=== PATIENT | female | born 2000 | race Caucasian/White ===

== ENCOUNTER 2023-12-09 07:17 | Emergency (ER) | payer MEDICAID ==
[2023-12-09] MEDS: Sodium Chloride 0.9% 10 ML Syringe FLUSH PRN (07:53)
[2023-12-09] MEDS: Lactated Ringers 1,000 ML IV ONE (07:55)
[2023-12-09] MEDS: Sodium Chloride 0.9% 1,000 ML IV ONE (08:02)
[2023-12-09 08:08] LABS: BASOPHILS PERCENT AUTO 0.4 % (0.2-1.5); EOSINOPHILS ABSOLUTE AUTO 0.1 x10-3/uL (0.0-0.8); EOSINOPHILS PERCENT AUTO 1.3 % (0.6-8.1); HEMATOCRIT 33.4 % (34.2-48.2); HEMOGLOBIN 11.1 g/dL (11.4-15.5); LYMPHOCYTES ABSOLUTE AUTO 1.8 x10-3/uL (1.0-4.4); LYMPHOCYTES PERCENT AUTO 19.6 % (18.4-52.1); MEAN CORPUSCULAR HEMOGLOBIN 28.6 pg (23.9-33.9); MEAN CORPUSCULAR HGB CONC 33.1 g/dL (31.9-34.8); MEAN CORPUSCULAR VOLUME 86.2 fL (76.7-100.5); MONOCYTES ABSOLUTE AUTO 0.6 x10-3/uL (0.3-1.0); MONOCYTES PERCENT AUTO 6.1 % (4.4-15.7); NEUTROPHILS ABSOLUTE AUTO 6.8 x10-3/uL (1.5-6.3); NEUTROPHILS PERCENT AUTO 72.6 % (30.8-76.2); PLATELET COUNT,PLT 323 x10(3)uL (151-488); RED BLOOD CELL COUNT 3.87 x10(6)uL (3.60-5.20); RED CELL DISTRIBUTION WIDTH 13.9 % (12.3-16.5); WHITE BLOOD CELL COUNT,WBC 9.3 x10-3/uL (3.0-10.3)
[2023-12-09 08:09] LABS: BLOOD UREA NITROGEN,BUN 7 mg/dL (7-18); BUN/CREATININE RATIO 11.7 (9-20); CALCIUM 8.4 mg/dL (8.6-10.2); CARBON DIOXIDE,CO2 20 mmol/L (21-32); CHLORIDE,CL 103 mmol/L (100-110); CREATININE 0.6 mg/dL (0.55-1.02); EST CRCL DRUG DOSING (CG) 132.34 mL/min; ESTIMATED GFR 130 mL/min (>60); GLUCOSE RANDOM 84 mg/dL (80-116); POTASSIUM,K 3.2 mmol/L (3.5-5.3); SODIUM,NA 138 mmol/L (135-145)
[2023-12-09 08:14] LABS: A/G RATIO 0.7; ALANINE AMINOTRANSFERASE,ALT 7 U/L (12-36); ALBUMIN 2.9 g/dL (3.5-5.2); ALKALINE PHOSPHATASE 78 IU/L (56-112); ASPARTATE AMNIOTRANSFERASE,AST 6 IU/L (5-25); BILIRUBIN TOTAL 0.4 mg/dL (0.1-1.3); PROTEIN TOTAL,TP 6.9 g/dL (6.0-8.0)
[2023-12-09 08:18] LABS: LACTIC ACID 0.9 mmol/L (0.4-2.0)
[2023-12-12 15:57] LABS: ADENOVIRUS 40/41 PCR Not Detected; ASTROVIRUS PCR Not Detected; CAMPYLOBACTER PCR Not Detected; CRYPTOSPORIDIUM PCR Not Detected; CYCLOSPORA CAYETANENSIS PCR Not Detected; ENTAMOEBA HISTOLYTICA PCR Not Detected; ENTEROAGGREGATIVE E. COLI PCR Not Detected; ENTEROPATHOGENIC E. COLI PCR Detected; ENTEROTOXIGENIC E. COLI PCR Not Detected; GIARDIA LAMBLIA PCR Not Detected; NOROVIRUS GI/GII PCR Not Detected; PLESIOMONAS SHIGELLOIDES PCR Not Detected; ROTAVIRUS A PCR Not Detected; SALMONELLA PCR Not Detected; SAPOVIRUS PCR Not Detected; SHIG/ENTEROINVASIVE E COLI PCR Not Detected; SHIGA TOXIN-PRODUC E. COLI PCR Not Detected; VIBRIO CHOLERAE PCR Not Detected; VIBRIO PCR Not Detected; YERSINIA ENTEROCOLITICA PCR Not Detected
== END 2023-12-09 10:41 | disposition home or self-care (01) ==
LOC: FB.ED 07:17
DX: O99.613 Diseases of the digestive system complicating pregnancy, third trimester (principal); K52.9 Noninfective gastroenteritis and colitis, unspecified; Z91.041 Radiographic dye allergy status; Z3A.26 26 weeks gestation of pregnancy; Z79.899 Other long term (current) drug therapy
CPT/HCPCS: 80053; 83605; 85025; 87230; 87507; 96360; 99284; 99284-25; J3490; J7120

== ENCOUNTER 2024-04-04 22:08 | Emergency (ER) | payer MEDICAID ==
[2024-04-04] MEDS: SUMAtriptan 6 MG/0.5 ML SDV SUBCUT ONE (22:45)
== END 2024-04-04 22:51 | disposition home or self-care (01) ==
LOC: FB.ED 22:08
DX: S09.90XA Unspecified injury of head, initial encounter (principal); G43.909 Migraine, unspecified, not intractable, without status migrainosus; J45.909 Unspecified asthma, uncomplicated; Z86.16 Personal history of COVID-19; Z88.4 Allergy status to anesthetic agent; Z79.899 Other long term (current) drug therapy; W22.8XXA Striking against or struck by other objects, initial encounter
CPT/HCPCS: 96372; 99283; J3030

== ENCOUNTER 2024-04-17 10:44 | Emergency (ER) | payer MEDICAID ==
[2024-04-17] MEDS: LORazepam 2 MG/ML SDV IVPUSH ONE (11:17)
[2024-04-17] MEDS: Ondansetron 4 MG/2 ML SDV IVPUSH ONE (11:18)
[2024-04-17] MEDS: Sodium Chloride 0.9% 1,000 ML IV ONE ×2 (11:19→12:08)
[2024-04-17 11:30] LABS: BASOPHILS ABSOLUTE AUTO 0.1 x10-3/uL (0.0-0.1); BASOPHILS PERCENT AUTO 1.1 % (0.2-1.5); EOSINOPHILS PERCENT AUTO 0.6 % (0.6-8.1); HEMATOCRIT 35.7 % (34.2-48.2); HEMOGLOBIN 11.4 g/dL (11.4-15.5); LYMPHOCYTES PERCENT AUTO 29.4 % (18.4-52.1); MEAN CORPUSCULAR HEMOGLOBIN 25.3 pg (23.9-33.9); MEAN CORPUSCULAR VOLUME 79.2 fL (76.7-100.5); MEAN PLATELET VOLUME 8.4 fL (7.1-12.4); MONOCYTES ABSOLUTE AUTO 0.8 x10-3/uL (0.3-1.0); NEUTROPHILS ABSOLUTE AUTO 3.8 x10-3/uL (1.5-6.3); NEUTROPHILS PERCENT AUTO 56.9 % (30.8-76.2); PLATELET COUNT,PLT 445 x10(3)uL (151-488); RED CELL DISTRIBUTION WIDTH 18.6 % (12.3-16.5); WHITE BLOOD CELL COUNT,WBC 6.6 x10-3/uL (3.0-10.3)
[2024-04-17 11:34] LABS: A/G RATIO 1.1; ALANINE AMINOTRANSFERASE,ALT 20 U/L (12-36); ALBUMIN 3.8 g/dL (3.5-5.2); ALKALINE PHOSPHATASE 94 IU/L (56-112); ASPARTATE AMNIOTRANSFERASE,AST 16 IU/L (5-25); BILIRUBIN TOTAL 0.2 mg/dL (0.1-1.3); BLOOD UREA NITROGEN,BUN 7 mg/dL (7-18); BUN/CREATININE RATIO 8.8 (9-20); CALCIUM 9.3 mg/dL (8.6-10.2); CARBON DIOXIDE,CO2 21 mmol/L (21-32); CHLORIDE,CL 106 mmol/L (100-110); CREATINE KINASE,CK 125 IU/L (60-160); CREATININE 0.8 mg/dL (0.55-1.02); ESTIMATED GFR 107 mL/min (>60); GLUCOSE RANDOM 113 mg/dL (80-116); PROTEIN TOTAL,TP 7.3 g/dL (6.0-8.0); SODIUM,NA 143 mmol/L (135-145)
[2024-04-17 11:36] LABS: POTASSIUM,K 2.6 mmol/L (3.5-5.3)
[2024-04-17 11:38] LABS: RED BLOOD CELL COUNT 4.51 x10(6)uL (3.60-5.20)
[2024-04-17] MEDS ORDERED: Sodium Chloride 0.9% 10 ML Syringe FLUSH PRN (11:45)
[2024-04-17] MEDS: Potassium Chloride 20 MEQ in Premix Bag 1 BAG IV ONE (12:20)
[2024-04-17 12:43] LABS: AMPHETAMINES SCREEN, URINE NEGATIVE (NEGATIVE); BARBITURATE SCREEN,URINE NEGATIVE (NEGATIVE); BENZODIAZEPINES SCREEN,URINE NEGATIVE (NEGATIVE); METHADONE SCREEN, URINE NEGATIVE (NEGATIVE); METHAMPHETAMINE SCREEN, URINE NEGATIVE (NEGATIVE); OXYCODONE SCREEN,URINE NEGATIVE (NEGATIVE); THC SCREEN,URINE POSITIVE (NEGATIVE)
[2024-04-17 12:44] LABS: BUPRENORPHINE SCREEN,URINE NEGATIVE (NEGATIVE)
== END 2024-04-17 13:13 ==
LOC: FB.ED 10:44
DX: O9A.23 Injury, poisoning and certain other consequences of external causes complicating the puerperium (principal); T68.XXXA Hypothermia, initial encounter; O99.345 Other mental disorders complicating the puerperium; F53.0 Postpartum depression; F10.120 Alcohol abuse with intoxication, uncomplicated; E87.6 Hypokalemia; Z86.16 Personal history of COVID-19; Z98.84 Bariatric surgery status; Z88.4 Allergy status to anesthetic agent; Z79.899 Other long term (current) drug therapy
CPT/HCPCS: 80053; 80307; 82550; 85025; 93005; 96365; 96375; 99285; J2060; J2405; J3480; J7030

== ENCOUNTER 2024-06-08 13:20 | Emergency (ER) | payer MEDICAID | END 2024-06-08 13:58 | disposition left against medical advice (07) | LOC: FB.ED 13:20 | DX: F10.10 Alcohol abuse, uncomplicated (principal); Z86.16 Personal history of COVID-19; Z79.899 Other long term (current) drug therapy; Z88.3 Allergy status to other anti-infective agents; Y90.9 Presence of alcohol in blood, level not specified | CPT/HCPCS: 99284 ==

== ENCOUNTER 2024-08-09 19:39 | Emergency (ER) | payer MEDICAID ==
[2024-08-09] MEDS: Aluminum Hydroxide/Magnesium Hydroxide Susp 30 ML Cup PO STA (19:48)
[2024-08-09] MEDS: Sodium Chloride 0.9% 1,000 ML IV ONE ×2 (20:05→21:49)
[2024-08-09] MEDS: Prochlorperazine 10 MG/2 ML SDV IVPUSH ONE (20:06)
[2024-08-09 20:08] LABS: BASOPHILS PERCENT AUTO 0.4 % (0.2-1.5); EOSINOPHILS PERCENT AUTO 0.4 % (0.6-8.1); HEMATOCRIT 30.5 % (34.2-48.2); HEMOGLOBIN 9.7 g/dL (11.4-15.5); LYMPHOCYTES ABSOLUTE AUTO 2.7 x10-3/uL (1.0-4.4); LYMPHOCYTES PERCENT AUTO 28.1 % (18.4-52.1); MEAN CORPUSCULAR HEMOGLOBIN 23.3 pg (23.9-33.9); MEAN CORPUSCULAR HGB CONC 31.8 g/dL (31.9-34.8); MEAN CORPUSCULAR VOLUME 73.4 fL (76.7-100.5); MEAN PLATELET VOLUME 7.9 fL (7.1-12.4); MONOCYTES ABSOLUTE AUTO 0.2 x10-3/uL (0.3-1.0); MONOCYTES PERCENT AUTO 2.2 % (4.4-15.7); NEUTROPHILS ABSOLUTE AUTO 6.6 x10-3/uL (1.5-6.3); NEUTROPHILS PERCENT AUTO 68.9 % (30.8-76.2); PLATELET COUNT,PLT 464 x10(3)uL (151-488); RED BLOOD CELL COUNT 4.15 x10(6)uL (3.60-5.20); RED CELL DISTRIBUTION WIDTH 16.2 % (12.3-16.5); WHITE BLOOD CELL COUNT,WBC 9.6 x10-3/uL (3.0-10.3)
[2024-08-09 20:10] LABS: BLOOD UREA NITROGEN,BUN 13 mg/dL (7-18); BUN/CREATININE RATIO 18.6 (9-20); CALCIUM 9.2 mg/dL (8.6-10.2); CARBON DIOXIDE,CO2 23 mmol/L (21-32); CHLORIDE,CL 102 mmol/L (100-110); CREATININE 0.7 mg/dL (0.55-1.02); ESTIMATED GFR 125 mL/min (>60); GLUCOSE RANDOM 116 mg/dL (80-116); POTASSIUM,K 3.3 mmol/L (3.5-5.3); SODIUM,NA 140 mmol/L (135-145)
[2024-08-09 20:16] LABS: A/G RATIO 1.3; ALANINE AMINOTRANSFERASE,ALT 28 U/L (12-36); ALBUMIN 4.2 g/dL (3.5-5.2); ALKALINE PHOSPHATASE 92 IU/L (56-112); ASPARTATE AMNIOTRANSFERASE,AST 24 IU/L (5-25); BILIRUBIN TOTAL 0.3 mg/dL (0.1-1.3); PROTEIN TOTAL,TP 7.5 g/dL (6.0-8.0)
[2024-08-09] MEDS: Iopamidol 755 Mg/ML 100 ML Bottle IV SCH (20:29)
[2024-08-09] MEDS: Pantoprazole 40 MG Vial IVPUSH ONE (21:52)
[2024-08-09] MEDS: Aluminum Hydroxide/Magnesium Hydroxide Susp 30 ML Cup ONE (22:53)
[2024-08-10] MEDS: Piperacillin/Tazobactam 3.375 GM in Sodium Chloride 0.9% 50 ML IV STA (01:08)
[2024-08-10] MEDS: Sodium Chloride 0.9% 1,000 ML IV ONE (01:08)
[2024-08-10] MEDS: fentaNYL 100 MCG/2 ML SDV IVPUSH ONE (01:45)
== END 2024-08-10 01:45 ==
LOC: FB.ED 19:39
DX: K63.1 Perforation of intestine (nontraumatic) (principal); D64.9 Anemia, unspecified; F17.210 Nicotine dependence, cigarettes, uncomplicated; Z88.4 Allergy status to anesthetic agent; Z79.899 Other long term (current) drug therapy; Z86.16 Personal history of COVID-19; Z95.1 Presence of aortocoronary bypass graft
CPT/HCPCS: 36415; 74177; 80053; 80307; 81025; 83690; 85025; 96361; 96365; 96375; 99285; 99285-25; A9270-GY; J0780; J2470; J2543; J7030; Q9967